=== PATIENT | male | born 1995 | race African-American/Black ===

== ENCOUNTER 2022-01-25 17:45 | Emergency (ER) | payer OTHER ==
[~2022-01-25] VITALS: Ht 188 cm; Wt 110.1 kg
[2022-01-25] MEDS ORDERED: KETOROLAC 60MG 2ML VIAL IM ONE (22:35)
[2022-01-25 22:57] VITALS: BP 138/73
== END 2022-01-25 23:01 | disposition home or self-care (01) ==
LOC: M ED 17:45
DX: S89.91XA Unspecified injury of right lower leg, initial encounter (principal); Y93.67 Activity, basketball; Y92.830 Public park as the place of occurrence of the external cause; F17.290 Nicotine dependence, other tobacco product, uncomplicated
CPT/HCPCS: 73564; 96372; 99284; J1885